=== PATIENT | female | born 1965 | race Caucasian/White ===

== ENCOUNTER 2017-05-31 10:49 | Emergency (ER) | payer OTHER ==
[~2017-05-31] VITALS: Ht 154.9 cm; Wt 68.6 kg
[~2017-05-31 10:49] MED LIST: HTN; MELO15TA2 PO; OXYC-360 PO; REST30CA PO
[2017-05-31 10:52] VITALS: BP 128/61; PULSE 82; RESP 16; TEMP 98.4; O2SAT 97
[2017-05-31] MEDS ORDERED: TEMA30CA PO (11:11)
[2017-05-31] MEDS ORDERED: DULO1CAP PO (11:11)
[2017-05-31] MEDS ORDERED: OMEP20TA93 PO (11:11)
[2017-05-31] MEDS ORDERED: BP pill PO (11:11)
--- NOTE | 2017-05-31 11:33 | PD ---
HPI . Cold/Flu like symptoms Chief Complaint: Cold / Flu Symptoms Time Seen by Provider: 11:08 Travel History International Travel<30 days: No Contact w/Intl Traveler<30days: No Traveled to known affect area: No History of Present Illness HPI Patient is a 52 year old female who presents with cold/flu like symptoms. Patient reports that she began to feel these symptoms starting on Wednesday but felt far more noticeable on Wednesday. Recent sick contacts include her grandson that came home from school with similar symptoms. Since Wednesday, the symptoms have gotten progressively worse. Patient does not report any aggravating factors nor alleviating factors. Patient reports headache, increased inner ear pressure, a cough producing yellow-green sputum, sore throat , night sweats, muscle pains all over, nausea, diarrhea, and vomiting on . Patient denies any blood in the vomit or diarrhea. PFSH Past Medical History Anxiety: Yes Depression: Yes Diminished Hearing: No GERD: Yes Herniated Disk: Yes Hypertension: Yes Tetanus Vaccination: > 5 Years Influenza Vaccination: No ?: Not Ovarian Cysts: Yes Dilation and Curettage (D&C): Yes Tubal Ligation: Yes (TUBAL REVERSAL) Past Surgical History Section: Yes (X 2) Gynecologic Surgery: Yes (C SECTION X 2, UTERINE ABLASION, TUBAL LIGATION AND REVERSAL) Other Surgery: Yes (Back surgery) Social History Alcohol Use: Yes (occassionally) Tobacco Use: Yes (1.5 ppd) Substance Use: No Allergies-Medications (Allergen,Severity, Reaction): Coded Allergies: No Known Allergies (Verified Adverse Reaction, Unknown, 05/31/17) Reported Meds & Prescriptions Reported Meds & Active Scripts Active Reported [BP pill] 1 Tab PO DAILY Omeprazole 20 Mg Tab 20 Mg PO DAILY Duloxetine DR (Duloxetine HCl) 20 Mg Capdr 20 Mg PO DAILY Temazepam 30 Mg Cap 30 Mg PO HS PRN Review of Systems Except as stated in HPI: all other systems reviewed are Neg General / Constitutional: Positive: Other (night sweats), No: Fever, Chills HENT: Positive: Headaches, Sore Throat, Congestion, Earache Respiratory: Positive: Cough Physical Exam Narrative GENERAL: Awake and alert and in no acute distress. SKIN: Warm and dry. HEAD: Normocephalic/atraumatic. EYES: Pupils are equal. Extraocular movements are intact. ENT: Tonsillarly enlargement. Pharynx without erythema or exudate. NECK: Normal range of motion. No cervical lymphadenopathy. CARDIOVASCULAR: Regular rate and rhythm. RESPIRATORY: Nonlabored respirations. Shallow breath sounds though clear to auscultation bilaterally. MUSCULOSKELETAL: Atraumatic. NEUROLOGICAL: Nonfocal. PSYCHIATRIC: Appropriate mood and affect. Data Data Last Documented VS Vital Signs Date Time Temp Pulse Resp B/P (MAP) Pulse Ox O2 Delivery O2 Flow Rate FiO2 05/31/17 11:14 Room Air 05/31/17 10:52 98.4 82 16 128/61 (83) 97 Orders Orders Influenzae A/B Antigen (05/31/17 11:41) MDM Medical Decision Making Medical Screen Exam Complete: Yes Emergency Medical Condition: Yes Differential Diagnosis Differential diagnosis includes but is not limited to influenza, upper respiratory infection, bronchitis, pneumonia Narrative Course Patient presents for the evaluation of cold symptoms which have been present for several days. Flu screen is negative. She will be treated symptomatically. I will give her a prescription for Phenergan DM for the cough. Diagnosis Primary Impression: Upper respiratory infection Qualified Codes: J06.9 - Acute upper respiratory infection, unspecified Patient Instructions: General Instructions, Upper Respiratory Infection (DC) Med/Other Pt SpecificInfo: Prescription(s) given Scripts Dextromethorphan-Promethazine Liq (Promethazine-Dextromethorphan Liq) 6.25-15 Mg /5 Ml Syrp 10 ML PO Q6HR for cough, #120 Prov: Angelica Lee MD 05/31/17 Disposition: 01 DISCHARGE HOME Condition: Stable Angelica Lee MD May 31, 2017 11:33
[2017-05-31] MEDS ORDERED: PROMSYP3 PO (12:33)
[2017-05-31 12:46] VITALS: BP 132/78
== END 2017-05-31 12:51 | disposition home or self-care (01) ==
LOC: PHED 10:49
DX: J06.9 Acute upper respiratory infection, unspecified (principal); K21.9 Gastro-esophageal reflux disease without esophagitis; I10 Essential (primary) hypertension; F32.9 Major depressive disorder, single episode, unspecified; F17.210 Nicotine dependence, cigarettes, uncomplicated
CPT/HCPCS: 87804; 99283